=== PATIENT | male | born 1985 | race American Indian/Alaskan Native ===

== ENCOUNTER 2017-12-15 16:26 | Emergency (ER) | payer SELFPAY ==
[2017-12-15 16:37] VITALS: BP 147/95
[2017-12-15] MEDS ORDERED: BOOSTRIX IM ONE (19:30)
--- NOTE | 2017-12-15 20:10 | Emergency Department Report ---
- General Chief Complaint: Puncture Wound Stated Complaint: STEPPED ON NAIL/RT FOOT Time Seen by Provider: 12/15/17 19:47 Source: patient Mode of arrival: Ambulatory Limitations: No Limitations - History of Present Illness Initial Comments: Patient 32-year-old -[place] male presents with status post stepping on a dontae nail yesterday patient was wearing sneakers at time of the event presents for pain with mild swelling there is no erythema no drainage patient is ambulatory pain rated at 3/10 Onset/Timin -: days(s) Extremity Location: Right: Foot Place: home Patient Tetanus UTD: No Context: accidental, other (stepped dontae nail ) Associated Symptoms: other (pain with ambulation ) - Related Data Previous Rx's Medication Instructions Recorded Last Taken Type Amoxicillin [Trimox CAP] 500 mg PO Q8H #30 capsule 01/10/14 Unknown Rx HYDROcodone/APAP 10-325 [[place] 1 each PO Q4-6H PRN #20 tablet 01/10/14 Unknown Rx 10-325 mg TAB] HYDROcodone/APAP 5-325 [[place] 1 each PO Q6HR PRN #20 tablet 05/26/14 Unknown Rx 5-325 mg TAB] Ibuprofen [Motrin] 600 mg PO Q8H PRN #50 tablet 05/26/14 Unknown Rx Penicillin Vk [Veetids TAB] 500 mg PO QID #40 tablet 05/26/14 Unknown Rx Ciprofloxacin HCl [Cipro] 500 mg PO BID #20 tablet 12/15/17 Unknown Rx traMADol [Ultram] 50 mg PO Q6HR PRN #12 tablet 12/15/17 Unknown Rx Allergies Allergy/AdvReac Type Severity Reaction Status Date / Time No Known Allergies Allergy Verified 12/15/17 16:32 ED Review of Systems ROS: Stated complaint: STEPPED ON NAIL/RT FOOT Other details as noted in HPI Constitutional: denies: chills, fever Eyes: denies: eye pain, eye discharge, vision change ENT: denies: ear pain, throat pain Respiratory: denies: cough, shortness of breath, wheezing Cardiovascular: denies: chest pain, palpitations Endocrine: no symptoms reported Gastrointestinal: denies: abdominal pain, nausea, diarrhea Genitourinary: denies: urgency, dysuria Musculoskeletal: other (puncture wound right foot ). denies: back pain, joint swelling, arthralgia Skin: other (as above ). denies: rash, lesions Neurological: denies: headache, weakness, paresthesias Psychiatric: denies: anxiety, depression Hematological/Lymphatic: denies: easy bleeding, easy bruising ED Past Medical Hx - Past Medical History Previous Medical History?: No - Surgical History Past Surgical History?: No - Social History Smoking Status: Never Smoker Substance Use Type: None - Medications Home Medications: Home Medications Medication Instructions Recorded Confirmed Last Taken Type Amoxicillin [Trimox CAP] 500 mg PO Q8H #30 capsule 01/10/14 Unknown Rx HYDROcodone/APAP 10-325 [[place] 1 each PO Q4-6H PRN #20 tablet 01/10/14 Unknown Rx 10-325 mg TAB] HYDROcodone/APAP 5-325 [[place] 1 each PO Q6HR PRN #20 tablet 05/26/14 Unknown Rx 5-325 mg TAB] Ibuprofen [Motrin] 600 mg PO Q8H PRN #50 tablet 05/26/14 Unknown Rx Penicillin Vk [Veetids TAB] 500 mg PO QID #40 tablet 05/26/14 Unknown Rx Ciprofloxacin HCl [Cipro] 500 mg PO BID #20 tablet 12/15/17 Unknown Rx traMADol [Ultram] 50 mg PO Q6HR PRN #12 tablet 12/15/17 Unknown Rx ED Physical Exam - General Limitations: No Limitations General appearance: alert, in no apparent distress - Head Head exam: Present: atraumatic, normocephalic - Eye Eye exam: Present: normal appearance - ENT ENT exam: Present: mucous membranes moist - Neck Neck exam: Present: normal inspection - Respiratory Respiratory exam: Present: normal lung sounds bilaterally. Absent: respiratory distress - Cardiovascular Cardiovascular Exam: Present: regular rate, normal rhythm. Absent: systolic murmur, diastolic murmur, rubs, gallop - GI/Abdominal GI/Abdominal exam: Present: soft, normal bowel sounds - Rectal Rectal exam: Present: deferred - Extremities Exam Extremities exam: Present: full ROM, tenderness (right plantar foot puncture woudn), normal capillary refill. 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 Absent: ecchymosis, deformity, crepidus, dislocation, amputation, foreign body, calcaneal tenderness, tenderness at base of 5th metatarsal, nail avulsion, subungual hematoma Neuro vascular tendon exam: Present: no vascular compromise. Absent: pulse deficit, abnormal cap refill, motor deficit, sensory deficit, tendon deficit, extremity cold to touch, pallor, abnormal 2-point discrimination, decreased fine /light touch, foot drop, peroneal nerve deficit, significant pain with passive ROM of distal joint Gait: Positive: observed and limited by pain - Back Exam Back exam: Present: normal inspection, full ROM. Absent: tenderness - Neurological Exam Neurological exam: Present: alert, oriented X3, CN II-XII intact, normal gait, reflexes normal. Absent: motor sensory deficit - Psychiatric Psychiatric exam: Present: normal affect, normal mood - Skin Skin exam: Present: warm, dry, normal color, other (puncture wound as above less than 1 cm mild erythema no fever no drainage ). Absent: rash ED Course Vital Signs 12/15/17 16:32 Temperature 98.6 F Pulse Rate 94 H Respiratory 16 Rate Blood Pressure 147/95 O2 Sat by Pulse 98 Oximetry ED Medical Decision Making - Medical Decision Making Right foot puncture wound less than 1 cm wound. Betadine solution was given tetanus patient refuses x-rays as he is ambulatory and weightbearing . Mild erythema no drainage. Pulses easily palpable bilateral +2 patient was wearing sneakers at time of incident prescribed Cipro prophylaxis for pseudomonas Ultram when necessary pain patient refuses Rene wrap patient wound care instructions including warm soaks and follow PCP in 2-3 days and verbalize understanding and agreement with plan will be DC'd home in stable condition at this time patient remains ambulatory at this time Critical care attestation.: If time is entered above; I have spent that time in minutes in the direct care of this critically ill patient, excluding procedure time. ED Disposition Clinical Impression: Puncture wound Disposition: DC-01 TO HOME OR SELFCARE Is pt being admited?: No Does the pt Need Aspirin: No Condition: Good Instructions: Puncture Wound (ED) Prescriptions: Ciprofloxacin HCl [Cipro] 500 mg PO BID #20 tablet traMADol [Ultram] 50 mg PO Q6HR PRN #12 tablet PRN Reason: Pain Referrals: [facility] [Outside] - 3-5 Days Forms: Work/School Release Form(ED) Time of Disposition: 20:14
== END 2017-12-15 20:29 | disposition home or self-care (01) ==
LOC: ED 16:26
DX: S91.332A Puncture wound without foreign body, left foot, initial encounter (principal); W22.8XXA Striking against or struck by other objects, initial encounter; Y93.89 Activity, other specified; Y99.8 Other external cause status; Y92.009 Unspecified place in unspecified non-institutional (private) residence as the place of occurrence of the external cause
CPT/HCPCS: 90471; 90715; 99282

== ENCOUNTER 2018-07-06 19:49 | Emergency (ER) | payer OTHER ==
[2018-07-06 21:49] LABS: Bilirubin,Urine NEG (Negative); Blood,Urine LG (Negative); Color,Urine Yellow (Yellow); Mucus,Urine FEW /HPF; Protein,Urine <15 mg/dL mg/dL (Negative)
[2018-07-06] MEDS ORDERED: IBUPROFEN PO ONE (23:44)
[2018-07-06] MEDS ORDERED: LEVAQUIN PO ONE (23:44)
--- NOTE | 2018-07-06 23:47 | Emergency Department Report ---
ED Male HPI - General Chief complaint: Urogenital-Male Stated complaint: BLOOD IN URINE Time Seen by Provider: 07/06/18 23:39 Source: patient Mode of arrival: Ambulatory Limitations: No Limitations - History of Present Illness Initial comments: Physical -[place] male who presents for hematuria times one episode today patient Charlotte denies fevers chills or nausea vomiting there is no back pain and urinary hesitancy no prostate problem patient refuses CT to rule out kidney stone she's having no pain MD Complaint: dysuria Onset/Timin -: days(s) Radiation: none, eyes Severity scale (0 -10): 1 Quality: other (hematuria ) Consistency: intermittent Improves with: none Worsens with: none denies other symptoms - Related Data Sexually active: Yes Previous Rx's Medication Instructions Recorded Last Taken Type Amoxicillin [Trimox CAP] 500 mg PO Q8H #30 capsule 01/10/14 Unknown Rx HYDROcodone/APAP 10-325 [[place] 1 each PO Q4-6H PRN #20 tablet 01/10/14 Unknown Rx 10-325 mg TAB] HYDROcodone/APAP 5-325 [[place] 1 each PO Q6HR PRN #20 tablet 05/26/14 Unknown Rx 5-325 mg TAB] Ibuprofen [Motrin] 600 mg PO Q8H PRN #50 tablet 05/26/14 Unknown Rx Penicillin Vk [Veetids TAB] 500 mg PO QID #40 tablet 05/26/14 Unknown Rx Ciprofloxacin HCl [Cipro] 500 mg PO BID #20 tablet 12/15/17 Unknown Rx traMADol [Ultram] 50 mg PO Q6HR PRN #12 tablet 12/15/17 Unknown Rx Ciprofloxacin HCl [Cipro] 500 mg PO BID 10 Days #20 tablet 07/06/18 Unknown Rx Allergies Allergy/AdvReac Type Severity Reaction Status Date / Time No Known Allergies Allergy Verified 12/15/17 16:32 ED Review of Systems ROS: Stated complaint: BLOOD IN URINE Other details as noted in HPI Constitutional: denies: chills, fever Eyes: denies: eye pain, eye discharge, vision change ENT: denies: ear pain, throat pain Respiratory: denies: cough, shortness of breath, wheezing Cardiovascular: denies: chest pain, palpitations Endocrine: no symptoms reported Gastrointestinal: denies: abdominal pain, nausea, diarrhea Genitourinary: hematuria. denies: urgency, dysuria, frequency, discharge, testicular pain, testicular mass Musculoskeletal: denies: back pain, joint swelling, arthralgia Skin: denies: rash, lesions Neurological: denies: headache, weakness, paresthesias Psychiatric: denies: anxiety, depression Hematological/Lymphatic: denies: easy bleeding, easy bruising ED Past Medical Hx - Past Medical History Previous Medical History?: No - Surgical History Past Surgical History?: No - Social History Smoking Status: Current Every Day Smoker Substance Use Type: Alcohol, Cocaine - Medications Home Medications: Home Medications Medication Instructions Recorded Confirmed Last Taken Type Amoxicillin [Trimox CAP] 500 mg PO Q8H #30 capsule 01/10/14 Unknown Rx HYDROcodone/APAP 10-325 [[place] 1 each PO Q4-6H PRN #20 tablet 01/10/14 Unknown Rx 10-325 mg TAB] HYDROcodone/APAP 5-325 [[place] 1 each PO Q6HR PRN #20 tablet 05/26/14 Unknown Rx 5-325 mg TAB] Ibuprofen [Motrin] 600 mg PO Q8H PRN #50 tablet 05/26/14 Unknown Rx Penicillin Vk [Veetids TAB] 500 mg PO QID #40 tablet 05/26/14 Unknown Rx Ciprofloxacin HCl [Cipro] 500 mg PO BID #20 tablet 12/15/17 Unknown Rx traMADol [Ultram] 50 mg PO Q6HR PRN #12 tablet 12/15/17 Unknown Rx Ciprofloxacin HCl [Cipro] 500 mg PO BID 10 Days #20 tablet 07/06/18 Unknown Rx ED Physical Exam - General Limitations: No Limitations General appearance: alert, in no apparent distress - Head Head exam: Present: atraumatic, normocephalic - Eye Eye exam: Present: normal appearance, PERRL, EOMI Pupils: Present: normal accommodation - ENT ENT exam: Present: mucous membranes moist - Neck Neck exam: Present: normal inspection, full ROM. Absent: lymphadenopathy - Respiratory Respiratory exam: Present: normal lung sounds bilaterally. Absent: respiratory distress, stridor, chest wall tenderness - Cardiovascular Cardiovascular Exam: Present: regular rate, normal rhythm, normal heart sounds. Absent: systolic murmur, diastolic murmur, rubs, gallop - GI/Abdominal GI/Abdominal exam: Present: soft, normal bowel sounds. Absent: distended, rebound, bruit, hernia - Rectal Rectal exam: Present: deferred - exam: Present: other (deferred per patient ) - Extremities Exam Extremities exam: Present: normal inspection, full ROM. Absent: tenderness - Back Exam Back exam: Present: normal inspection, full ROM. Absent: tenderness, CVA tenderness (R), CVA tenderness (L), muscle spasm, rash noted - Neurological Exam Neurological exam: Present: alert, oriented X3 - Psychiatric Psychiatric exam: Present: normal affect, normal mood - Skin Skin exam: Present: warm, dry, intact, normal color. Absent: rash ED Course Vital Signs 07/06/18 07/06/18 19:53 20:20 Temperature 98.0 F 98 F Pulse Rate 85 87 Respiratory 18 18 Rate Blood Pressure 146/94 146/94 O2 Sat by Pulse 98 98 Oximetry ED Medical Decision Making - Lab Data Labs 07/06/18 21:33 Urine Color Yellow Urine Turbidity Clear Urine pH 5.0 Ur Specific [place] 1.023 Urine Protein <15 mg/dl Urine Glucose (UA) Neg Urine Ketones Neg Urine Blood Lg Urine Nitrite Neg Urine Bilirubin Neg Urine Urobilinogen 2.0 Ur Leukocyte Esterase Sm Urine WBC (Auto) 11.0 H Urine RBC (Auto) 60.0 U Epithel Cells (Auto) 2.0 Urine Mucus Few - Medical Decision Making pt states hematuria x 1 today, denies truama, no pain , denies back pain no dy suria frequency or urgency no flow problem denies fever no chills no prostate problem no hx of renal stones, pt refuses ct stone protocol, plan: cipro x 10 days follow up with urology in 2-3 days , follow up with pcp in 2-3 days given referral to both pt will return to emergency if symptoms worsen or unable to void, pt verbalized agreement and understanding of discharge plan. pt for dc to home in stable condition at this time Critical care attestation.: If time is entered above; I have spent that time in minutes in the direct care of this critically ill patient, excluding procedure time. ED Disposition Clinical Impression: Hematuria Qualifiers: Hematuria type: unspecified type Qualified Code(s): R31.9 - Hematuria, unspecified UTI (urinary tract infection) Qualifiers: Urinary tract infection type: acute cystitis Hematuria presence: with hematuria Qualified Code(s): N30.01 - Acute cystitis with hematuria Disposition: DC-01 TO HOME OR SELFCARE Is pt being admited?: No Does the pt Need Aspirin: No Condition: Stable Instructions: Urinary Tract Infection in Men (ED), Acute Hematuria (ED) Prescriptions: Ciprofloxacin HCl [Cipro] 500 mg PO BID 10 Days #20 tablet Referrals: JIMENEZ CLINTON MD [Staff Physician] - 3-5 Days [facility] [Outside] - 3-5 Days Forms: Work/School Release Form(ED) Time of Disposition: 23:59
[2018-07-07 00:10] VITALS: BP 134/74
== END 2018-07-07 00:09 | disposition home or self-care (01) ==
LOC: ED 19:49
DX: N39.0 Urinary tract infection, site not specified (principal); F17.200 Nicotine dependence, unspecified, uncomplicated; F14.10 Cocaine abuse, uncomplicated
CPT/HCPCS: 81001